=== PATIENT | male | born 1960 | race Caucasian/White ===

== ENCOUNTER 2016-02-20 15:26 | Emergency (ER) | payer OTHER ==
--- NOTE | 2016-02-20 17:20 | EDDOCDS ---
Nurse's Notes [facility] Name: Everton London Age: 55 yrs Sex: Male : 1960 Arrival Date: 02/20/2016 Time: 15:26 Bed TR7 Private MD: Other - Complete Info On Cds Diagnosis: Acute bronchitis Presentation: 02/19 15:38 Presenting complaint: Patient states: flu type symptoms since Sunday night. Adult po Sepsis Screening: The patient does not have new or worsening altered mentation. Patient's respiratory rate is less than 22. Systolic blood pressure is greater than 100. Patient has a qSOFA score of 0- Negative Sepsis Screen. Suicide/Homicide risk assessment- the patient denies having any suicidal and/or homicidal ideations and does not present with any other emotional, behavioral or mental health complaints. Status: Patient is not a automobile service advisor or dependent. Transition of care: patient was not received from another setting of care. 15:38 Acuity: DARRIUS Level 4 po 15:38 Method Of Arrival: Walkin/Carried/Asstd po Triage Assessment: 15:40 General: Appears in no apparent distress, Behavior is appropriate for age, cooperative. po Pain: Denies pain. HIV screening NA for this visit Offered previously. Neurological: Level of Consciousness is awake, Oriented to person. EENT: Reports nasal congestion nasal discharge. Respiratory: Reports cough that is productive. GI: Reports nausea. Derm: Skin is pink, warm & dry. Historical: - Allergies: no known allergies; - Home Meds: 1. Synthroid 50 mcg Oral tab 1 tab once daily - PMHx: Hypothyroidism; Left Pneumothorax; - PSHx: none; - Social history: Smoking status: Patient uses tobacco products, heavy tobacco smoker. No barriers to communication noted, The patient speaks fluent Bruneian. - Family history: Not pertinent. - : The pt / caregiver states he / she is not on anticoagulants. Home medication list is obtained from the patient. - Exposure Risk Screening:: None identified. Screenin:00 Screening information is obtained from the patient. Fall risk: No risks identified. hs1 Assistance ADL's: requires no assistance with activities of daily living. Abuse/DV Screen: The patient / caregiver reports he/she is: not in a situation that causes fear, pain or injury. Nutritional screening: No deficits noted. Advance Directives: There is no active DNR order. home support is adequate. Assessment: 16:59 General: Appears in no apparent distress, Behavior is appropriate for age, cooperative. hs1 EENT: Reports nasal congestion nasal discharge pain in forehead, right eye, nose and left eye Pain is 6 out of 10 on a pain scale. Respiratory: Airway is patent Respiratory effort is even, unlabored, Respiratory pattern is regular, symmetrical. Derm: Skin is pink, warm & dry. normal. 17:15 General: Patient instructed on discharge instructions. Patient asked if there were any [facility] questions regarding discharge, patient stated no. Patient signed discharge instructions. Patient discharged in stable condition. . Vital Signs: 15:28 BP 139 / 89; Pulse 88; Resp 18; Temp 98.9; Pulse Ox 99% ; Weight 74.84 kg; Height 78 elp in. (198.12 cm); 17:15 BP 130 / 80; Pulse 78; Resp 20; Temp 97.5; Pulse Ox 98% on R/A; Pain 0/10; jmb 15:28 Body Mass Index 19.07 (74.84 kg, 198.12 cm) [facility] Vitals: 15:28 Log In Time: February 20, 2016 at 15:25. [facility] ED Course: 15:27 Patient visited by Sparkle Deleon PCA. elp 15:27 Patient moved to Waiting elp 15:28 Other - Complete Info On Cds is Private Physician. elp 15:29 Patient visited by Sparkle Deleon PCA. elp 15:29 Patient moved to Pre RCE elp 15:39 Triage Initiated po 15:40 Arm band placed on right wrist. Patient placed in waiting room. po 15:42 Patient visited by Afshin Viera,BUFFY. po 16:38 Patient moved to I9 / 22 mlb1 16:39 [facility] ke 16:39 Patient visited by Cleveland Quiros FNP. ke 16:39 Patient visited by Cleveland Quiros FNP. ke 16:59 -Influenza A&B Rapid Antigen - Nose Sent. hs1 17:00 The patient / caregiver is instructed regarding the plan of care and ED course. hs1 17:00 No IV's were initiated during this patient's visit. No procedures done that require hs1 assistance. 17:18 Patient moved to TR7 [facility] Order Results: There are currently no results for this order. Outcome: 17:02 Discharge ordered by Provider. amanda 17:15 Discharge Assessment: Patient awake, alert and oriented x 3. No cognitive and/or jmb functional deficits noted. Patient verbalized understanding of disposition instructions. Patient awake and alert. obeys commands, Oriented to person, place and time. Patient verbalized understanding of disposition instructions. Patient has no functional deficits. patient administered narcotics - no. The following High Risk Discharge criteria are identified: None. Discharged to home ambulatory. Condition: stable. Discharge instructions given to patient, Instructed on discharge instructions, follow up and referral plans. medication usage, Demonstrated understanding of instructions, medications, Pt was receptive of discharge instructions/ teaching. Prescriptions given X 2. No special radiology studies were completed. Property sent home with patient. 17:19 Patient left the ED. fernie Signatures: Afshin Viera,RN RN Cleveland Pandey, LOWERATOR OPERATOR LOWERATOR OPERATOR Jose Alfredo Boswell RN RN mlb1 Darlyn Post RN RN hs1 Sparkle Deleon, MEAT CUTTER MEAT CUTTER elErnesto Hui,RN RN gilbertb MTDD
--- NOTE | 2016-02-20 17:21 | EDDOCDS ---
Physician Documentation [facility] Name: Everton London Age: 55 yrs Sex: Male : 1960 Arrival Date: 02/20/2016 Time: 15:26 Bed TR7 Private MD: Other - Complete Info On Cds Disposition: 02/20/16 17:02 Discharged to Home/Self Care. Impression: Acute bronchitis. - Condition is Stable. - Discharge Instructions: Acute Bronchitis. - Prescriptions for Zithromax Z- Gaurav 250 mg Oral Tablet - take 1 tablet by ORAL route as directed for 5 days Day 1- take two tablets once. Day 2, 3, 4 , 5 take one tablet once daily.; 6 tablet. Albuterol Sulfate 90 mcg/actuation Inhalation HFA Aerosol Inhaler - inhale 2 puff by INHALATION route every 4 hours As needed; 1 Inhaler. - Medication Reconciliation, Local Pharmacy Hours form. - Follow up: Private Physician; When: 4 - 5 days; Reason: Recheck today's complaints, Continuance of care. - Problem is an ongoing problem. - Symptoms are unchanged. Historical: - Allergies: no known allergies; - Home Meds: 1. Synthroid 50 mcg Oral tab 1 tab once daily - PMHx: Hypothyroidism; Left Pneumothorax; - PSHx: none; - Social history: Smoking status: Patient uses tobacco products, heavy tobacco smoker. No barriers to communication noted, The patient speaks fluent Lao. - Family history: Not pertinent. - : The pt / caregiver states he / she is not on anticoagulants. Home medication list is obtained from the patient. - Exposure Risk Screening:: None identified. Vital Signs: 02/19 15:28 BP 139 / 89; Pulse 88; Resp 18; Temp 98.9; Pulse Ox 99% ; Weight 74.84 kg / 164.99 lbs; elp Height 78 in. (198.12 cm); 17:15 BP 130 / 80; Pulse 78; Resp 20; Temp 97.5; Pulse Ox 98% on R/A; Pain 0/10; jmb 15:28 Body Mass Index 19.07 (74.84 kg, 198.12 cm) elp MDM: 15:45 Strep Screen, Nursing ordered. ef1 15:46 -Influenza A&B Rapid Antigen - Nose Ordered. EDMS 17:05 GATS (NEGATIVE STREP SCREEN) Ordered. EDMS 17:14 Financial registration complete. zo Signatures: Dispatcher [employer] EDKY Afshin Viera,RN RN Cleveland Pandey, INSOLE TACK PULLER HAND INSOLE TACK PULLER HAND Deuce Galindo Erica, PA-C PA-C ef1 Ernesto Palacios,RN RN gilbertb MTDD
--- NOTE | 2016-02-22 18:20 | EDDOCDS ---
Nurse's Notes [facility] Name: Evertno London Age: 55 yrs Sex: Male : 1960 Arrival Date: 02/20/2016 Time: 15:26 Bed TR7 Private MD: Other - Complete Info On Cds Diagnosis: Acute bronchitis Presentation: 02/19 15:38 Presenting complaint: Patient states: flu type symptoms since Sunday night. Adult po Sepsis Screening: The patient does not have new or worsening altered mentation. Patient's respiratory rate is less than 22. Systolic blood pressure is greater than 100. Patient has a qSOFA score of 0- Negative Sepsis Screen. Suicide/Homicide risk assessment- the patient denies having any suicidal and/or homicidal ideations and does not present with any other emotional, behavioral or mental health complaints. Status: Patient is not a rehabilitation services manager or dependent. Transition of care: patient was not received from another setting of care. 15:38 Acuity: DARRIUS Level 4 po 15:38 Method Of Arrival: Walkin/Carried/Asstd po Triage Assessment: 15:40 General: Appears in no apparent distress, Behavior is appropriate for age, cooperative. po Pain: Denies pain. HIV screening NA for this visit Offered previously. Neurological: Level of Consciousness is awake, Oriented to person. EENT: Reports nasal congestion nasal discharge. Respiratory: Reports cough that is productive. GI: Reports nausea. Derm: Skin is pink, warm & dry. Historical: - Allergies: no known allergies; - Home Meds: 1. Synthroid 50 mcg Oral tab 1 tab once daily - PMHx: Hypothyroidism; Left Pneumothorax; - PSHx: none; - Social history: Smoking status: Patient uses tobacco products, heavy tobacco smoker. No barriers to communication noted, The patient speaks fluent Bulgarian. - Family history: Not pertinent. - : The pt / caregiver states he / she is not on anticoagulants. Home medication list is obtained from the patient. - Exposure Risk Screening:: None identified. Screenin:00 Screening information is obtained from the patient. Fall risk: No risks identified. hs1 Assistance ADL's: requires no assistance with activities of daily living. Abuse/DV Screen: The patient / caregiver reports he/she is: not in a situation that causes fear, pain or injury. Nutritional screening: No deficits noted. Advance Directives: There is no active DNR order. home support is adequate. Assessment: 16:59 General: Appears in no apparent distress, Behavior is appropriate for age, cooperative. hs1 EENT: Reports nasal congestion nasal discharge pain in forehead, right eye, nose and left eye Pain is 6 out of 10 on a pain scale. Respiratory: Airway is patent Respiratory effort is even, unlabored, Respiratory pattern is regular, symmetrical. Derm: Skin is pink, warm & dry. normal. 17:15 General: Patient instructed on discharge instructions. Patient asked if there were any [facility] questions regarding discharge, patient stated no. Patient signed discharge instructions. Patient discharged in stable condition. . Vital Signs: 15:28 BP 139 / 89; Pulse 88; Resp 18; Temp 98.9; Pulse Ox 99% ; Weight 74.84 kg; Height 78 elp in. (198.12 cm); 17:15 BP 130 / 80; Pulse 78; Resp 20; Temp 97.5; Pulse Ox 98% on R/A; Pain 0/10; jmb 15:28 Body Mass Index 19.07 (74.84 kg, 198.12 cm) [facility] Vitals: 15:28 Log In Time: February 20, 2016 at 15:25. [facility] ED Course: 15:27 Patient visited by Sparkle Deleon PCA. elp 15:27 Patient moved to Waiting elp 15:28 Other - Complete Info On Cds is Private Physician. elp 15:29 Patient visited by Sparkle Deleon PCA. elp 15:29 Patient moved to Pre RCE elp 15:39 Triage Initiated po 15:40 Arm band placed on right wrist. Patient placed in waiting room. po 15:42 Patient visited by Afshin Viera,BUFFY. po 16:38 Patient moved to I9 / 22 mlb1 16:39 [facility] ke 16:39 Patient visited by Cleveland Quiros FNP. ke 16:39 Patient visited by Cleveland Quiros FNP. ke 16:59 -Influenza A&B Rapid Antigen - Nose Sent. hs1 17:00 The patient / caregiver is instructed regarding the plan of care and ED course. hs1 17:00 No IV's were initiated during this patient's visit. No procedures done that require hs1 assistance. 17:18 [facility] Payment Agreement was scanned into [employer] and attached to record. zo 02/20 06:37 T-Sheet-- Draft Copy was scanned into [employer] and attached to record. hs2 Order Results: Lab Order: -Influenza A&B Rapid Antigen - Nose; SPEC'M 02/20/16 16:55 Test: INFLUENZA A RAPID SCR by ICA; Value: INFLUENZA A RESULTS NEGATIVE; Status: F Test: INFLUENZA A RAPID SCR by ICA; Value: Comments:; Status: F Test: INFLUENZA B RAPID SCR by ICA; Value: INFLUENZA B RESULTS NEGATIVE; Status: F Test Note: ; The Influenza test is a direct rapid immunoassay for the qualitative detection of Influenza viral antigen. Cell culture (Viral Culture) testing should be considered to confirm NEGATIVE results and to assist in detecting other viruses that can provide similar clinical symptoms. Please contact the lab within 24 hours ([phone]) if confirmatory testing is desired. Lab Order: GATS (NEGATIVE STREP SCREEN); SPEC'M 02/20/16 17:05 Test: GATS CULTURE (NEG STREP SCR); Value: GATS RESULT NEGATIVE FOR STREP PYOGENES (GROUP A); Status: F Outcome: 02/19 17:02 Discharge ordered by Provider. amanda 17:15 Discharge Assessment: Patient awake, alert and oriented x 3. No cognitive and/or jmb functional deficits noted. Patient verbalized understanding of disposition instructions. Patient awake and alert. obeys commands, Oriented to person, place and time. Patient verbalized understanding of disposition instructions. Patient has no functional deficits. patient administered narcotics - no. The following High Risk Discharge criteria are identified: None. Discharged to home ambulatory. Condition: stable. Discharge instructions given to patient, Instructed on discharge instructions, follow up and referral plans. medication usage, Demonstrated understanding of instructions, medications, Pt was receptive of discharge instructions/ teaching. Prescriptions given X 2. No special radiology studies were completed. Property sent home with patient. 17:19 Patient left the ED. fernie Signatures: Afshin Viera,RN RN Cleveland Pandey, UNDERBASTER UNDERBASTER Jose Alfredo Boswell RN RN mlb1 Deuce Workman Hannah, RN RN hs1 Sparkle Deleon, CHAIN SPLITTER CHAIN SPLITTER elp Ernesto Palacios RN RN jmb [place], Estrella, Reg Reg hs2 Chart Complete MTDD
--- NOTE | 2016-02-22 18:20 | EDDOCDS ---
Physician Documentation [facility] Name: Everton London Age: 55 yrs Sex: Male : 1960 Arrival Date: 02/20/2016 Time: 15:26 Bed TR7 Private MD: Other - Complete Info On Cds Disposition: 02/20/16 17:02 Discharged to Home/Self Care. Impression: Acute bronchitis. - Condition is Stable. - Discharge Instructions: Acute Bronchitis. - Prescriptions for Zithromax Z- Gaurav 250 mg Oral Tablet - take 1 tablet by ORAL route as directed for 5 days Day 1- take two tablets once. Day 2, 3, 4 , 5 take one tablet once daily.; 6 tablet. Albuterol Sulfate 90 mcg/actuation Inhalation HFA Aerosol Inhaler - inhale 2 puff by INHALATION route every 4 hours As needed; 1 Inhaler. - Medication Reconciliation, Local Pharmacy Hours form. - Follow up: Private Physician; When: 4 - 5 days; Reason: Recheck today's complaints, Continuance of care. - Problem is an ongoing problem. - Symptoms are unchanged. Historical: - Allergies: no known allergies; - Home Meds: 1. Synthroid 50 mcg Oral tab 1 tab once daily - PMHx: Hypothyroidism; Left Pneumothorax; - PSHx: none; - Social history: Smoking status: Patient uses tobacco products, heavy tobacco smoker. No barriers to communication noted, The patient speaks fluent Mohawk. - Family history: Not pertinent. - : The pt / caregiver states he / she is not on anticoagulants. Home medication list is obtained from the patient. - Exposure Risk Screening:: None identified. Vital Signs: 02/19 15:28 BP 139 / 89; Pulse 88; Resp 18; Temp 98.9; Pulse Ox 99% ; Weight 74.84 kg / 164.99 lbs; elp Height 78 in. (198.12 cm); 17:15 BP 130 / 80; Pulse 78; Resp 20; Temp 97.5; Pulse Ox 98% on R/A; Pain 0/10; jmb 15:28 Body Mass Index 19.07 (74.84 kg, 198.12 cm) elp MDM: 15:45 Strep Screen, Nursing ordered. ef1 15:46 -Influenza A&B Rapid Antigen - Nose Ordered. EDMS 17:05 GATS (NEGATIVE STREP SCREEN) Ordered. EDMS 17:14 Financial registration complete. zo 17:35 [facility] Payment Agreement was scanned into [employer] and attached to record. zo 02/20 06:37 T-Sheet-- Draft Copy was scanned into [employer] and attached to record. hs2 Signatures: Dispatcher [employer] EDMS Afshin Viera,RN Cleveland Iniguez, COOK [employer] SCHO[employer] COOK [employer] SCHO[employer] Deuce Galindo Erica, PA-C PA-C ef1 Ernesto Palacios RN RN jmb Estrella [place], Reg Reg hs2 The chart was reviewed and I authenticate all verbal orders and agree with the evaluation and treatment provided.Attachments: 02/19 17:35 [facility] Payment Agreement zo 02/20 06:37 T-Sheet-- Draft Copy hs2 Chart Complete MTDD
--- NOTE | 2016-02-22 18:20 | EDDOCDS ---
Physician Documentation [facility] Name: Everton London Age: 55 yrs Sex: Male : 1960 Arrival Date: 02/20/2016 Time: 15:26 Bed TR7 Private MD: Other - Complete Info On Cds Disposition: 02/20/16 17:02 Discharged to Home/Self Care. Impression: Acute bronchitis. - Condition is Stable. - Discharge Instructions: Acute Bronchitis. - Prescriptions for Zithromax Z- Gaurav 250 mg Oral Tablet - take 1 tablet by ORAL route as directed for 5 days Day 1- take two tablets once. Day 2, 3, 4 , 5 take one tablet once daily.; 6 tablet. Albuterol Sulfate 90 mcg/actuation Inhalation HFA Aerosol Inhaler - inhale 2 puff by INHALATION route every 4 hours As needed; 1 Inhaler. - Medication Reconciliation, Local Pharmacy Hours form. - Follow up: Private Physician; When: 4 - 5 days; Reason: Recheck today's complaints, Continuance of care. - Problem is an ongoing problem. - Symptoms are unchanged. Historical: - Allergies: no known allergies; - Home Meds: 1. Synthroid 50 mcg Oral tab 1 tab once daily - PMHx: Hypothyroidism; Left Pneumothorax; - PSHx: none; - Social history: Smoking status: Patient uses tobacco products, heavy tobacco smoker. No barriers to communication noted, The patient speaks fluent Persian. - Family history: Not pertinent. - : The pt / caregiver states he / she is not on anticoagulants. Home medication list is obtained from the patient. - Exposure Risk Screening:: None identified. Vital Signs: 02/19 15:28 BP 139 / 89; Pulse 88; Resp 18; Temp 98.9; Pulse Ox 99% ; Weight 74.84 kg / 164.99 lbs; elp Height 78 in. (198.12 cm); 17:15 BP 130 / 80; Pulse 78; Resp 20; Temp 97.5; Pulse Ox 98% on R/A; Pain 0/10; jmb 15:28 Body Mass Index 19.07 (74.84 kg, 198.12 cm) elp MDM: 15:45 Strep Screen, Nursing ordered. ef1 15:46 -Influenza A&B Rapid Antigen - Nose Ordered. EDMS 17:05 GATS (NEGATIVE STREP SCREEN) Ordered. EDMS 17:14 Financial registration complete. zo 17:35 [facility] Payment Agreement was scanned into [employer] and attached to record. zo 02/20 06:37 T-Sheet-- Draft Copy was scanned into [employer] and attached to record. hs2 Signatures: Dispatcher [employer] EDMS Afshin Viera,RN Cleveland Iniguez, STANDARDS ANALYST STANDARDS ANALYST Deuce Galindo Erica, PA-C PA-C ef1 Ernesto Palacios RN RN jmb Estrella [place], Reg Reg hs2 The chart was reviewed and I authenticate all verbal orders and agree with the evaluation and treatment provided.Attachments: 02/19 17:35 [facility] Payment Agreement zo 02/20 06:37 T-Sheet-- Draft Copy hs2 Chart Complete MTDD
== END 2016-02-20 17:19 | disposition home or self-care (01) ==
LOC: M ED 15:26
DX: J20.9 Acute bronchitis, unspecified (principal); E03.9 Hypothyroidism, unspecified; Z72.0 Tobacco use; Z79.899 Other long term (current) drug therapy

== ENCOUNTER 2016-11-08 12:14 | Emergency (ER) | payer OTHER ==
[~2016-11-08] VITALS: Ht 198.1 cm; Wt 79.5 kg
[2016-11-08 12:14] VITALS: BP_DIAS 69
[2016-11-08] MEDS ORDERED: NYQU1LIQ PO (12:23)
[2016-11-08] MEDS ORDERED: LEVO25TA5 PO (12:23)
[2016-11-08] MEDS ORDERED: [UNRECOGNIZED DRUG - CODE] (12:23)
[2016-11-08] MEDS ORDERED: ADACEL/BOOSTRIX VACCINE (DIPHTH/PERTUSS/ACELL/TETANUS)0.5ML SYR (90715) IM ONE (13:30)
[2016-11-08] MEDS ORDERED: TESS100C PO (14:38)
[2016-11-08] MEDS ORDERED: KEFL500C17 PO (14:38)
--- NOTE | 2016-11-08 14:58 | REP ---
Chest x-ray: Two views. History: Cough. Tobacco use. Question pneumonia. No comparison chest x-rays. Findings: The lungs are quite hyperinflated consistent with COPD. There are emphysematous changes throughout the upper lobes bilaterally. Pleural angles are sharp. No infiltrate is seen to suggest pneumonia radiographically. Heart is not enlarged. Pulmonary vasculature is not increased. No significant bony abnormality is seen. Impression: Evidence of COPD. No acute disease. Signed by Mateo Nelson MD 11/08/2016 05:25 P
[2016-11-08 15:13] VITALS: BP_SYST 140
== END 2016-11-08 15:15 | disposition home or self-care (01) ==
LOC: M ED 12:14
DX: J06.9 Acute upper respiratory infection, unspecified (principal); J44.9 Chronic obstructive pulmonary disease, unspecified; L03.211 Cellulitis of face; F17.210 Nicotine dependence, cigarettes, uncomplicated; Z87.09 Personal history of other diseases of the respiratory system

== ENCOUNTER → 2020-12-15 | Outpatient (CLI) | payer OTHER ==
[~2020-12-15] MED LIST: KEFL500C17 PO; LEVO25TA5 PO; NYQU1LIQ PO; TESS100C PO; [UNRECOGNIZED DRUG - CODE]
[2020-12-15 12:23] LABS: BASO % 0.3 % (0.0-1.0); EOS # 0.3 10^3/uL (0.0-0.5); EOS % 3.1 % (0.0-3.0); HEMATOCRIT 43.7 % (42.0-52.0); HEMOGLOBIN 14.5 g/dl (13.5-17.5); LYMPH # 1.3 10^3/uL (1.5-5.0); MEAN CORPUSCULAR HEMOGLOBIN 30.5 pg (27.0-33.0); MEAN CORPUSCULAR HGB CONC 33.2 g/dl (32.0-36.5); MEAN CORPUSCULAR VOLUME 91.8 fl (80.0-96.0); MONO # 1.5 10^3/uL (0.0-0.8); MONO % 16.5 % (2.0-8.0); NEUTROPHILS % 65.8 % (36.0-66.0); PLATELET COUNT, AUTOMATED 340 10^3/uL (150-450); RED BLOOD COUNT 4.76 10^6/uL (4.30-6.10); WHITE BLOOD COUNT 9.1 10^3/uL (4.0-10.0)
[2020-12-15 12:39] LABS: RHEUMATOID FACTOR QUANT 88.4 IU/ML (<15.0)
[2020-12-15 13:02] LABS: ERYTHROCYTE SEDIMENTATION RATE 35 mm/hr (0-20)
== END ==
LOC: M LAB 11:09
PROVIDERS: ATTEND Allergy & Immunology Allergy
DX: J30.89 Other allergic rhinitis (principal); L50.1 Idiopathic urticaria; J44.9 Chronic obstructive pulmonary disease, unspecified

== ENCOUNTER 2021-04-21 11:17 | Emergency (ER) | payer OTHER ==
[~2021-04-21] VITALS: Ht 198.1 cm; Wt 75.8 kg
[2021-04-21 12:37] LABS: BASO % 0.3 % (0.0-1.0); EOS # 0.3 10^3/uL (0.0-0.5); EOS % 3.6 % (0.0-3.0); HEMATOCRIT 46.4 % (42.0-52.0); HEMOGLOBIN 15.3 g/dl (13.5-17.5); LYMPH # 1.7 10^3/uL (1.5-5.0); LYMPH % 18.1 % (24.0-44.0); MEAN CORPUSCULAR HEMOGLOBIN 30.5 pg (27.0-33.0); MEAN CORPUSCULAR VOLUME 92.4 fl (80.0-96.0); MONO # 1.4 10^3/uL (0.0-0.8); MONO % 15.1 % (2.0-8.0); NEUTROPHILS # 5.8 10^3/uL (1.5-8.5); NEUTROPHILS % 62.7 % (36.0-66.0); PLATELET COUNT, AUTOMATED 278 10^3/uL (150-450); RED BLOOD COUNT 5.02 10^6/uL (4.30-6.10); WHITE BLOOD COUNT 9.3 10^3/uL (4.0-10.0)
[2021-04-21 12:46] LABS: BLOOD UREA NITROGEN 12 MG/DL (7-18); CALCIUM LEVEL 9.3 MG/DL (8.8-10.2); CARBON DIOXIDE LEVEL 30 MEQ/L (21-32); CHLORIDE LEVEL 108 MEQ/L (98-107); CREATININE FOR GFR 0.85 MG/DL (0.70-1.30); GLOMERULAR FILTRATION RATE > 60.0 (>49); GLUCOSE, FASTING 102 MG/DL (70-100); SODIUM LEVEL 141 MEQ/L (136-145)
[2021-04-21 13:17] LABS: ALBUMIN 3.7 GM/DL (3.2-5.2); ALT/SGPT 39 U/L (12-78); BILIRUBIN,DIRECT 0.2 MG/DL (0.0-0.2); BILIRUBIN,TOTAL 0.5 MG/DL (0.2-1.0); LIPASE 51 U/L (73-393)
[2021-04-21] MEDS ORDERED: ISOVUE-370 76% 100ML VIAL As Ordered ONE (13:19)
[2021-04-21 14:32] VITALS: BP 132/83
== END 2021-04-21 15:42 | disposition home or self-care (01) ==
LOC: M ED 11:17
DX: R07.9 Chest pain, unspecified (principal); R91.8 Other nonspecific abnormal finding of lung field; J44.9 Chronic obstructive pulmonary disease, unspecified; F17.200 Nicotine dependence, unspecified, uncomplicated
CPT/HCPCS: 71045; 71275; 80048; 80076; 83690; 85025; 93005; 93041; 94760; 99285; Q9967

== ENCOUNTER 2021-04-25 11:18 | Emergency (ER) | payer OTHER ==
[~2021-04-25] VITALS: Ht 198.1 cm; Wt 75.0 kg
[2021-04-25 13:00] LABS: HEMATOCRIT 44.9 % (42.0-52.0); HEMOGLOBIN 14.7 g/dl (13.5-17.5); MEAN CORPUSCULAR HEMOGLOBIN 30.2 pg (27.0-33.0); MEAN CORPUSCULAR HGB CONC 32.7 g/dl (32.0-36.5); MEAN CORPUSCULAR VOLUME 92.2 fl (80.0-96.0); PLATELET COUNT, AUTOMATED 264 10^3/uL (150-450); RED BLOOD COUNT 4.87 10^6/uL (4.30-6.10); WHITE BLOOD COUNT 14.4 10^3/uL (4.0-10.0)
[2021-04-25] MEDS ORDERED: predniSONE 20 MG TAB PO ONE (13:10)
[2021-04-25 13:28] LABS: ALBUMIN 3.6 GM/DL (3.2-5.2); ALT/SGPT 36 U/L (12-78); BLOOD UREA NITROGEN 13 MG/DL (7-18); CALCIUM LEVEL 9.2 MG/DL (8.8-10.2); CARBON DIOXIDE LEVEL 26 MEQ/L (21-32); CHLORIDE LEVEL 108 MEQ/L (98-107); CREATININE FOR GFR 0.71 MG/DL (0.70-1.30); GLOMERULAR FILTRATION RATE > 60.0 (>49); GLUCOSE, FASTING 110 MG/DL (70-100); POTASSIUM SERUM 3.9 MEQ/L (3.5-5.1); SODIUM LEVEL 140 MEQ/L (136-145); TOTAL PROTEIN 6.9 GM/DL (6.4-8.2)
[2021-04-25] MEDS ORDERED: PRED10TA2 PO (13:53)
[2021-04-25] MEDS ORDERED: HYDR-3713 PO (13:53)
[2021-04-25 14:09] VITALS: BP 121/73
== END 2021-04-25 14:14 | disposition home or self-care (01) ==
LOC: M ED 11:18
DX: R07.9 Chest pain, unspecified (principal); J44.9 Chronic obstructive pulmonary disease, unspecified; F17.200 Nicotine dependence, unspecified, uncomplicated
CPT/HCPCS: 71045; 80053; 85027; 93005; 99284; J7512

== ENCOUNTER → 2021-09-23 | Outpatient (CLI) | payer OTHER ==
[~2021-09-23] MED LIST changes: +HYDR-3713 PO; +PRED10TA2 PO
== END ==
LOC: M WHC 06:42
DX: R10.9 Unspecified abdominal pain (principal)

== ENCOUNTER 2021-12-22 06:51 | Emergency (ER) | payer OTHER ==
[~2021-12-22] VITALS: Ht 198.1 cm; Wt 79.5 kg
[2021-12-22] MEDS ORDERED: ATOR1TAB19 PO (07:07)
[2021-12-22] MEDS ORDERED: TAMS1CAP17 PO (07:07)
[2021-12-22] MEDS ORDERED: VITMTA PO (07:07)
[2021-12-22] MEDS ORDERED: ASPI81TA26 PO (07:07)
[2021-12-22] MEDS ORDERED: ALBU6.7H6 INH (07:07)
[2021-12-22] MEDS ORDERED: TREL1AER PO (07:07)
[2021-12-22] MEDS ORDERED: PRED20TA PO (09:23)
[2021-12-22 09:30] VITALS: BP 121/72
== END 2021-12-22 10:14 | disposition home or self-care (01) ==
LOC: M ED 06:51
DX: J44.1 Chronic obstructive pulmonary disease with (acute) exacerbation (principal); R53.83 Other fatigue; R51.9 Headache, unspecified; M79.10 Myalgia, unspecified site; F17.210 Nicotine dependence, cigarettes, uncomplicated; E78.5 Hyperlipidemia, unspecified; E88.01 Alpha-1-antitrypsin deficiency; Z79.51 Long term (current) use of inhaled steroids; Z79.890 Hormone replacement therapy; Z79.82 Long term (current) use of aspirin; Z79.899 Other long term (current) drug therapy

== ENCOUNTER → 2023-01-22 | Outpatient (CLI) | payer OTHER ==
[~2023-01-22] MED LIST changes: +ALBU6.7H6 INH; +ASPI81TA26 PO; +ATOR1TAB19 PO; +PRED20TA PO; +TAMS1CAP17 PO; +TREL1AER PO; +VITMTA PO
== END ==
LOC: M PLARAD 14:04
PROVIDERS: ATTEND Internal Medicine
DX: C7A.095 Malignant carcinoid tumor of the midgut, unspecified (principal)
CPT/HCPCS: 78816; A9552

== ENCOUNTER → 2023-11-21 | Outpatient (REF) | LOC: M PLAIMG 08:46 | PROVIDERS: ATTEND Internal Medicine | DX: R06.02 Shortness of breath (principal) ==

== ENCOUNTER → 2024-09-25 | Outpatient (REF) | LOC: M PLAIMG 08:29 | PROVIDERS: ATTEND Internal Medicine | DX: R06.02 Shortness of breath (principal) ==